=== PATIENT | male | born 1930 | race Caucasian/White ===

== ENCOUNTER 2017-02-23 21:09 | Inpatient (IN) | payer MEDICARE, MEDICAID ==
[~2017-02-23] VITALS: Ht 157.5 cm; Wt 63.8 kg
[~2017-02-23 21:09] MED LIST: FURO40TA6 PO; HYDR-3144 PO; INSU100V8 SQ; LANS30CA PO; LEVO25TA4 PO; LISINIPRIL PO; MEGE40TA PO; NAPR500T PO; OXYC-229 PO; VERA120T5 PO; ZOLP10TA5 PO
[2017-02-23] MEDS ORDERED: PANTOPRAZOLE 80 MG in SODIUM CHLORIDE 0.9% 50 ML IVPB ONE (21:14)
[2017-02-23] MEDS ORDERED: SODIUM CHLORIDE FLUSH 10ML SYR IVF ONE (21:30)
[2017-02-23 21:47] LABS: ASPARTATE AMINO TRANSFERASE 17 U/L (15-37); BLOOD UREA NITROGEN 43 mg/dL (7-18)
[2017-02-23] MEDS: PLEASE ENTER HEIGHT AND WEIGHT MC SCH (21:53)
[2017-02-23 21:58] LABS: IS PT STATUS REG ER OR PRE ER? YES
[2017-02-23] MEDS ORDERED: POTASSIUM CHLORIDE 40 MEQ in SODIUM CHLORIDE 0.9% 500 ML IV ONE (22:00)
[2017-02-23] MEDS: PANTOPRAZOLE 80 MG in SODIUM CHLORIDE 0.9% 100 ML IV SCH (22:30)
[2017-02-23 23:24] VITALS: BP 131/55
[2017-02-23] MEDS ORDERED: PROMETHAZINE 25 MG/ML, 1ML IM PRN (23:30)
[2017-02-23] MEDS ORDERED: LORazepam 2 MG/ML, 1ML IVPush PRN (23:30)
[2017-02-23 23:41] VITALS: BP 132/43
[2017-02-24] VITALS (15 sets, daily range): BP systolic 128–167; BP diastolic 53–79
[2017-02-24] MEDS: PLEASE ENTER HEIGHT AND WEIGHT MC SCH (02:10)
[2017-02-24] MEDS: MORPHINE SULFATE 4 MG/ML, 1ML IVPush PRN (04:56)
[2017-02-24 05:40] LABS: BLOOD UREA NITROGEN 39 mg/dL (7-18)
[2017-02-24 05:46] LABS: IS PT STATUS REG ER OR PRE ER? NO
[2017-02-24] MEDS: PANTOPRAZOLE 80 MG in SODIUM CHLORIDE 0.9% 100 ML IV SCH ×3 (06:16→18:56)
[2017-02-25 00:27] VITALS: BP 149/68
[2017-02-25] MEDS: PANTOPRAZOLE 80 MG in SODIUM CHLORIDE 0.9% 100 ML IV SCH ×2 (04:43→22:19)
[2017-02-25 06:11] LABS: BLOOD UREA NITROGEN 18 mg/dL (7-18)
[2017-02-25 08:15] VITALS: BP 153/61
[2017-02-25] MEDS ORDERED: HYDR-3144 PO (08:42)
[2017-02-25] MEDS ORDERED: POTASSIUM CHLORIDE 40 MEQ in SODIUM CHLORIDE 0.9% 500 ML IV ONE (09:30)
[2017-02-25] MEDS: MORPHINE SULFATE 4 MG/ML, 1ML IVPush PRN ×3 (10:56→22:21)
[2017-02-25] MEDS ORDERED: PROPOFOL 10 MG/ML, 50ML ONE (12:56)
[2017-02-25] MEDS ORDERED: HYDROmorphone 1 MG/ML, 1ML ONE (13:56)
[2017-02-25] MEDS: HYDROmorphone 1 MG/ML, 1ML IV PRN ×2 (13:59→14:07)
[2017-02-25] MEDS ORDERED: FENTANYL PF 100 MCG/2ML IV PRN (14:00)
[2017-02-25] MEDS ORDERED: MEPERIDINE/PF 25MG/0.5ML IVPush PRN (14:00)
[2017-02-25] MEDS ORDERED: MIDAZOLAM 1 MG/ML, 2ML IV PRN (14:00)
[2017-02-25] MEDS ORDERED: ONDANSETRON 2MG/ML, 2ML IVPush PRN (14:00)
[2017-02-25 14:32] VITALS: BP 165/78
[2017-02-25 20:00] VITALS: BP 158/87
[2017-02-26] MEDS: MORPHINE SULFATE 4 MG/ML, 1ML IVPush PRN (01:43)
[2017-02-26 02:00] VITALS: BP 154/74
[2017-02-26 06:30] LABS: BLOOD UREA NITROGEN 10 mg/dL (7-18)
[2017-02-26 06:50] VITALS: BP 152/80
[2017-02-26] MEDS: PANTOPRAZOLE 80 MG in SODIUM CHLORIDE 0.9% 100 ML IV SCH ×2 (09:09→18:24)
[2017-02-26] MEDS ORDERED: POTASSIUM CHLORIDE 20 MEQ TAB.ER.PRT PO ONE (09:30)
[2017-02-26] MEDS: HYDROcodone/APAP 10/325 MG TABLET PO PRN ×3 (09:32→21:33)
[2017-02-26] MEDS: POTASSIUM CHLORIDE 20 MEQ TAB.ER.PRT PO SCH ×2 (10:46→15:36)
[2017-02-26 15:51] VITALS: BP 123/67
[2017-02-26 20:00] VITALS: BP 130/66
[2017-02-26] MEDS: OMEPRAZOLE 20 MG CAPSULE.DR PO SCH (20:14)
[2017-02-27 02:00] VITALS: BP 146/89
[2017-02-27] MEDS: HYDROcodone/APAP 10/325 MG TABLET PO PRN ×4 (03:38→22:23)
[2017-02-27] MEDS: PANTOPRAZOLE 80 MG in SODIUM CHLORIDE 0.9% 100 ML IV SCH ×3 (04:49→17:25)
[2017-02-27 05:44] LABS: BLOOD UREA NITROGEN 10 mg/dL (7-18)
[2017-02-27 06:47] VITALS: BP 153/82
[2017-02-27] MEDS: OMEPRAZOLE 20 MG CAPSULE.DR PO SCH ×2 (09:22→20:17)
[2017-02-27 14:35] VITALS: BP 145/79
[2017-02-27] MEDS: SUCRALFATE 1 GM/10 ML UDC PO SCH ×2 (16:20→20:17)
[2017-02-27] MEDS: METOPROLOL TARTRATE 25 MG TABLET PO SCH (17:25)
[2017-02-27 20:00] VITALS: BP 136/72
[2017-02-27 20:07] LABS: HELICOBACTER PYLORI IGG 0.4 U/mL (0.0-0.8); HELICOBACTER PYLORI IGM <9.0 units (0.0-8.9)
[2017-02-28 02:00] VITALS: BP 150/72
[2017-02-28] MEDS: PANTOPRAZOLE 80 MG in SODIUM CHLORIDE 0.9% 100 ML IV SCH ×2 (03:03→11:09)
[2017-02-28] MEDS: HYDROcodone/APAP 10/325 MG TABLET PO PRN ×2 (04:27→10:50)
[2017-02-28] MEDS: METOPROLOL TARTRATE 25 MG TABLET PO SCH (05:55)
[2017-02-28 06:55] VITALS: BP 155/70
[2017-02-28] MEDS: OMEPRAZOLE 20 MG CAPSULE.DR PO SCH (07:25)
[2017-02-28] MEDS: SUCRALFATE 1 GM/10 ML UDC PO SCH ×2 (07:25→10:50)
[2017-02-28] MEDS ORDERED: SUCR1ORA2 PO (09:41)
[2017-02-28] MEDS ORDERED: OMEP-110 PO (09:41)
[2017-02-28] MEDS ORDERED: POLY17PO5 PO (10:05)
[2017-02-28] MEDS ORDERED: METO-93 PO (10:18)
== END 2017-02-28 12:16 | disposition home or self-care (01) | DRG 383 ==
LOC: ED 21:25 → EDIP 22:19 → 4EST 23:53
PROVIDERS: ADMIT Internal Medicine; ATTEND Internal Medicine
PROC: 30233N1 Transfusion of Nonautologous Red Blood Cells into Peripheral Vein, Percutaneous Approach (ICD-10-PCS; 2017-02-23)
PROC: 0DJ08ZZ Inspection of Upper Intestinal Tract, Via Natural or Artificial Opening Endoscopic (ICD-10-PCS; principal; 2017-02-25 12:00)
DX: K26.9 Duodenal ulcer, unspecified as acute or chronic, without hemorrhage or perforation (principal); E43 Unspecified severe protein-calorie malnutrition; D62 Acute posthemorrhagic anemia; I24.8 Other forms of acute ischemic heart disease; E87.6 Hypokalemia; L89.151 Pressure ulcer of sacral region, stage 1; J44.9 Chronic obstructive pulmonary disease, unspecified; I11.0 Hypertensive heart disease with heart failure; I50.9 Heart failure, unspecified; G54.6 Phantom limb syndrome with pain; I44.7 Left bundle-branch block, unspecified; M19.90 Unspecified osteoarthritis, unspecified site; E11.21 Type 2 diabetes mellitus with diabetic nephropathy; H91.90 Unspecified hearing loss, unspecified ear; I25.10 Atherosclerotic heart disease of native coronary artery without angina pectoris; I25.2 Old myocardial infarction; I48.0 Paroxysmal atrial fibrillation; K21.9 Gastro-esophageal reflux disease without esophagitis; K25.9 Gastric ulcer, unspecified as acute or chronic, without hemorrhage or perforation; M10.9 Gout, unspecified; Z87.891 Personal history of nicotine dependence; Z95.2 Presence of prosthetic heart valve; Z88.1 Allergy status to other antibiotic agents; Z88.8 Allergy status to other drugs, medicaments and biological substances; Z89.512 Acquired absence of left leg below knee; Z89.511 Acquired absence of right leg below knee; Z68.25 Body mass index [BMI] 25.0-25.9, adult
CPT/HCPCS: 36415; 80048; 80053; 83036; 83735; 84439; 84443; 84484; 85014; 85018; 85025; 85610; 85730; 86677; 86850; 86900; 86923; 93005; 93306; 96365; 96366; 96367; 96372; J1170; J2550; J2704; J3480; C9113; J2060; J7040; P9016

== ENCOUNTER 2017-03-14 13:57 | Inpatient (IN) | payer MEDICARE, MEDICAID ==
[~2017-03-14] VITALS: Ht 137.2 cm; Wt 58.0 kg
[~2017-03-14 13:57] MED LIST changes: +METO-93 PO; +OMEP-110 PO; +POLY17PO5 PO; +SUCR1ORA2 PO
[2017-03-14] MEDS ORDERED: NAPR-874 PO (14:23)
[2017-03-14] MEDS ORDERED: CEFD300C37 PO (14:23)
[2017-03-14] MEDS ORDERED: ALPR1TAB6 PO (14:23)
[2017-03-14] MEDS ORDERED: ESOM20CA PO (14:23)
[2017-03-14] MEDS ORDERED: RANI150T8 PO (14:23)
[2017-03-14] MEDS ORDERED: LISI2.5T PO (14:23)
[2017-03-14] MEDS ORDERED: FINA1TAB16 PO (14:23)
[2017-03-14] MEDS ORDERED: BACL-19 PO (14:23)
[2017-03-14 15:00] LABS: ASPARTATE AMINO TRANSFERASE 11 U/L (15-37); BLOOD UREA NITROGEN 21 mg/dL (7-18)
[2017-03-14 15:10] LABS: IS PT STATUS REG ER OR PRE ER? YES
[2017-03-14] MEDS ORDERED: morphine SULFATE 10 MG/ML, 1ML IVPush ONE (15:30)
[2017-03-14] MEDS ORDERED: ONDANSETRON 2MG/ML, 2ML IVPush ONE (15:30)
[2017-03-14] MEDS ORDERED: NS + 20MEQ KCL 1,000 ML IV SCH (17:05)
[2017-03-14] MEDS ORDERED: ACETAMINOPHEN 325 MG TABLET PO PRN (17:30)
[2017-03-14] MEDS ORDERED: GLUCAGON 1 MG IM PRN (17:30)
[2017-03-14] MEDS ORDERED: DEXTROSE 50%, 50ML SYRINGE IVPush PRN (17:30)
[2017-03-14] MEDS ORDERED: DOCUSATE 100 MG CAPSULE PO PRN (17:30)
[2017-03-14] MEDS ORDERED: ONDANSETRON 2MG/ML, 2ML IVPush PRN (17:30)
[2017-03-14] MEDS ORDERED: NITROGLYCERIN 0.4 MG BOTTLE (25 TABS) SL PRN (17:30)
[2017-03-14] MEDS ORDERED: hydrALAzine 20 MG/ML, 1ML IVPush PRN (17:30)
[2017-03-14] MEDS ORDERED: morphine SULFATE 10 MG/ML, 1ML IVPush PRN (17:30)
[2017-03-14] MEDS ORDERED: DEXTROSE 4 GM TAB.CHEW PO PRN (17:30)
[2017-03-14] MEDS ORDERED: ALPRazolam 1MG TABLET PO PRN (18:00)
[2017-03-14] MEDS: HYDROcodone/APAP 5/325 TABLET PO PRN (18:30)
[2017-03-14] MEDS: POTASSIUM CHLORIDE 20 MEQ TAB.ER.PRT PO SCH (18:31)
[2017-03-14 20:11] VITALS: BP 144/79
[2017-03-14 20:58] LABS: IS PT STATUS REG ER OR PRE ER? NO
[2017-03-14] MEDS: BACLOFEN 10 MG TABLET PO SCH (21:13)
[2017-03-14] MEDS: OMEPRAZOLE 20 MG CAPSULE.DR PO SCH (21:13)
[2017-03-14] MEDS: SODIUM CHLORIDE FLUSH 10ML SYR IVF SCH (21:13)
[2017-03-14] MEDS: INSULIN ASPART 100 UNITS/ML, PEN SQ-INSULIN SCH (21:14)
[2017-03-15 01:56] VITALS: BP 143/78
[2017-03-15 02:17] VITALS: BP 157/86
[2017-03-15 02:34] VITALS: BP 154/87
[2017-03-15] MEDS: CALCIUM CARBONATE 500 MG TAB.CHEW PO PRN ×2 (02:56→18:31)
[2017-03-15] MEDS: HYDROcodone/APAP 5/325 TABLET PO PRN ×4 (02:56→21:54)
[2017-03-15 03:03] LABS: IS PT STATUS REG ER OR PRE ER? NO
[2017-03-15 03:15] LABS: ASPARTATE AMINO TRANSFERASE 6 U/L (15-37); BLOOD UREA NITROGEN 27 mg/dL (7-18)
[2017-03-15] MEDS: INSULIN ASPART 100 UNITS/ML, PEN SQ-INSULIN SCH ×5 (07:00→21:00)
[2017-03-15 07:21] VITALS: BP 160/77
[2017-03-15] MEDS: POTASSIUM CHLORIDE 20 MEQ TAB.ER.PRT PO SCH ×2 (08:00→17:00)
[2017-03-15] MEDS ORDERED: REGADENOSON 0.4 MG/5 ML SYRINGE ONE (08:41)
[2017-03-15] MEDS: TEMPLATE NON-FORMULARY MED. (Finasteride** 1 MG) HOMEMEDPO SCH (09:00)
[2017-03-15] MEDS: SODIUM CHLORIDE FLUSH 10ML SYR IVF SCH ×2 (09:00→21:55)
[2017-03-15] MEDS: OMEPRAZOLE 20 MG CAPSULE.DR PO SCH ×2 (11:44→21:54)
[2017-03-15] MEDS: LISINOPRIL 5 MG TABLET PO SCH (11:47)
[2017-03-15] MEDS: FAMOTIDINE 20 MG TABLET PO SCH (11:47)
[2017-03-15 13:54] VITALS: BP 151/83
[2017-03-15 20:47] VITALS: BP 124/67
[2017-03-15] MEDS: CARVEDILOL 3.125 MG TABLET PO SCH (21:54)
[2017-03-15] MEDS: BACLOFEN 10 MG TABLET PO SCH (21:54)
[2017-03-15] MEDS: ATORVASTATIN 20 MG TABLET PO SCH (21:55)
[2017-03-16 00:01] VITALS: BP 117/62
[2017-03-16] MEDS: HYDROcodone/APAP 5/325 TABLET PO PRN ×3 (04:35→21:37)
[2017-03-16 05:45] LABS: BLOOD UREA NITROGEN 28 mg/dL (7-18)
[2017-03-16 05:49] LABS: ASPARTATE AMINO TRANSFERASE 7 U/L (15-37)
[2017-03-16] MEDS: CARVEDILOL 3.125 MG TABLET PO SCH ×2 (06:21→18:19)
[2017-03-16] MEDS: INSULIN ASPART 100 UNITS/ML, PEN SQ-INSULIN SCH ×4 (07:00→21:00)
[2017-03-16 07:20] VITALS: BP 120/63
[2017-03-16] MEDS: TEMPLATE NON-FORMULARY MED. (Finasteride** 1 MG) HOMEMEDPO SCH (09:00)
[2017-03-16] MEDS: LISINOPRIL 5 MG TABLET PO SCH (09:22)
[2017-03-16] MEDS: OMEPRAZOLE 20 MG CAPSULE.DR PO SCH ×2 (09:22→21:42)
[2017-03-16] MEDS: FAMOTIDINE 20 MG TABLET PO SCH (09:22)
[2017-03-16] MEDS: SODIUM CHLORIDE FLUSH 10ML SYR IVF SCH ×2 (09:33→21:00)
[2017-03-16] MEDS ORDERED: ATOR20TA9 PO (11:24)
[2017-03-16] MEDS ORDERED: CARV3.1212 PO (11:24)
[2017-03-16 12:53] VITALS: BP 129/55
[2017-03-16 20:00] VITALS: BP 146/74
[2017-03-16] MEDS: ATORVASTATIN 20 MG TABLET PO SCH (21:42)
[2017-03-16] MEDS: BACLOFEN 10 MG TABLET PO SCH (21:42)
[2017-03-17 02:00] VITALS: BP 137/74
[2017-03-17] MEDS: HYDROcodone/APAP 5/325 TABLET PO PRN ×3 (06:27→16:59)
[2017-03-17] MEDS: CARVEDILOL 3.125 MG TABLET PO SCH (06:27)
[2017-03-17] MEDS: INSULIN ASPART 100 UNITS/ML, PEN SQ-INSULIN SCH ×3 (07:00→16:00)
[2017-03-17 08:04] VITALS: BP 138/75
[2017-03-17] MEDS: OMEPRAZOLE 20 MG CAPSULE.DR PO SCH (08:36)
[2017-03-17] MEDS: FAMOTIDINE 20 MG TABLET PO SCH (08:36)
[2017-03-17] MEDS: LISINOPRIL 5 MG TABLET PO SCH (08:36)
[2017-03-17] MEDS: TEMPLATE NON-FORMULARY MED. (Finasteride** 1 MG) HOMEMEDPO SCH (08:37)
[2017-03-17] MEDS: SODIUM CHLORIDE FLUSH 10ML SYR IVF SCH (09:00)
[2017-03-17 13:26] VITALS: BP 129/72
== END 2017-03-17 18:01 | disposition home or self-care (01) | DRG 313 ==
LOC: ED 15:31 → EDIP 15:47 → 5SO 17:54 → 3NE 03-15 18:11
PROVIDERS: ADMIT Hospitalist; ATTEND Hospitalist
DX: R07.89 Other chest pain (principal); E44.0 Moderate protein-calorie malnutrition; I50.40 Unspecified combined systolic (congestive) and diastolic (congestive) heart failure; J44.9 Chronic obstructive pulmonary disease, unspecified; D63.8 Anemia in other chronic diseases classified elsewhere; E11.42 Type 2 diabetes mellitus with diabetic polyneuropathy; I25.10 Atherosclerotic heart disease of native coronary artery without angina pectoris; E87.6 Hypokalemia; I11.0 Hypertensive heart disease with heart failure; I48.0 Paroxysmal atrial fibrillation; K21.9 Gastro-esophageal reflux disease without esophagitis; M10.9 Gout, unspecified; H91.90 Unspecified hearing loss, unspecified ear; D72.829 Elevated white blood cell count, unspecified; I44.7 Left bundle-branch block, unspecified; M19.90 Unspecified osteoarthritis, unspecified site; R62.7 Adult failure to thrive; G89.29 Other chronic pain; Z87.11 Personal history of peptic ulcer disease; Z89.511 Acquired absence of right leg below knee; Z89.512 Acquired absence of left leg below knee; Z95.2 Presence of prosthetic heart valve; Z79.01 Long term (current) use of anticoagulants; Z95.1 Presence of aortocoronary bypass graft; Z79.899 Other long term (current) drug therapy; Z88.1 Allergy status to other antibiotic agents; Z88.8 Allergy status to other drugs, medicaments and biological substances; Z68.30 Body mass index [BMI] 30.0-30.9, adult
CPT/HCPCS: 36415; 71010; 78452; 80053; 80061; 82962; 83735; 84100; 84443; 84484; 85025; 85610; 85730; 93005; 93017; 99285; J1815; J2785; J3480; 92523-GN; A9502; C9898